=== PATIENT | female | born 1940 | race Caucasian/White ===

== ENCOUNTER 2019-11-04 01:16 | Emergency (ER) | payer MEDICARE, OTHER ==
[~2019-11-04] VITALS: Ht 160 cm; Wt 63.5 kg
--- NOTE | 2019-11-04 01:44 | ED General ---
General Chief Complaint: General Problems/Pain Stated Complaint: LEFT HIP PAIN Nursing Triage Note: Patient states that she has RA that she takes Methotrexate for. Patient states that she was taking 5 pills a day. Her physician wanted to ween her dose down. Patient was down to 2 pills a day but she did take 3 yesterday due to her pain increasing. Patient states that pain started yesterday at 17:00. Patient had taken Alieve with little relief. Patient presents to the ER due to pain, rating it 10 on the 1-10 pain scale. Nursing Sepsis Screen: No Definite Risk Source of Information: Patient, Spouse Exam Limitations: No Limitations History of Present Illness Date Seen by Provider: Nov 04, 2019 Time Seen by Provider: 01:21 Initial Comments 79-year-old female with a history of rheumatoid arthritis is been on a slow taper of her methotrexate since May. She noted a sudden increase in her typical rheumatoid are riotous pain yesterday. No known injury. She is quite concerned since she [place] dinner later today with extended family. She reports that she's had improvement with injection of steroids for similar symptoms in the past without any adverse effects reported. She requests the same today. She reports her labs are up-to-date and that she does not wish any diagnostic studies to be performed. She's not had any fever or chills. There's been no infection symptoms reported. Timing/Duration: 12 Hours Severity: Moderate Modifying Factors: improves with Movement Associated Systoms: No Chest Pain, No Cough, No Fever/Chills, No Nausea/Vomiting Allergies and Home Medications Allergies Coded Allergies: No Known Drug Allergies (Unverified , 11/04/19) Patient Home Medication List Home Medication List Reviewed: Yes Review of Systems Review of Systems Constitutional: malaise EENTM: no symptoms reported Respiratory: no symptoms reported Cardiovascular: no symptoms reported Gastrointestinal: no symptoms reported Genitourinary: no symptoms reported Musculoskeletal: see HPI Skin: no symptoms reported Psychiatric/Neurological: No Symptoms Reported Hematologic/Lymphatic: See HPI Past Xjcqbqv-Cgylnb-Jmilxi Hx Patient Social History Alcohol Use: Denies Use Recreational Drug Use: No Smoking Status: Never a Smoker Recent Foreign Travel: No Contact w/Someone Who Travel: No Recent Infectious Disease Expo: No Physical Abuse: No Sexual Abuse: No Mistreated: No Fear: No Seasonal Allergies Seasonal Allergies: No Past Medical History Surgeries: No Respiratory: No Cardiac: No Neurological: No Genitourinary: No Gastrointestinal: No Musculoskeletal: Yes Rheumatoid Arthritis Endocrine: No HEENT: No Cancer: No Psychosocial: No Integumentary: No Physical Exam Vital Signs Vital Signs - First Documented 11/04/19 01:25 Temp 36.4 Pulse 86 Resp 18 B/P (MAP) 144/62 (89) Pulse Ox 93 O2 Delivery Room Air Capillary Refill : Less Than 3 Seconds Height, Weight, BMI Height: '" Weight: lbs. oz. kg; 24.00 BMI Method: General Appearance: No Apparent Distress, WD/WN Eyes: Bilateral Eye Normal Inspection, Bilateral Eye PERRL, Bilateral Eye EOMI HEENT: PERRL/EOMI, TMs Normal, Normal ENT Inspection, Pharynx Normal Neck: Full Range of Motion, Normal Inspection, Non Tender, Supple Respiratory: Chest Non Tender, Lungs Clear Cardiovascular: Regular Rate, Rhythm, No Edema, No Gallop, No Murmur, Normal Peripheral Pulses Gastrointestinal: Normal Bowel Sounds, No Organomegaly, Non Tender, Soft Back: Normal Inspection, No CVA Tenderness, No Vertebral Tenderness Extremity: Normal Capillary Refill, Inflammation, Other (ulnar deviation of hands and other stigmata of rheumatoid arthritis noted. No acute erythema or inflammation.) Neurologic/Psychiatric: Alert, Oriented x3, No Motor/Sensory Deficits, Normal Mood/Affect, crusher machine operator II-XII Norm as Tested Reflexes: 2+ Bicep (R), 2+ Bicep (L) Skin: Normal Color, Warm/Dry Lymphatic: No Adenopathy Progress/Results/Core Measures Suspected Sepsis Recent Fever Within 48 Hours: No Infection Criteria Present: None New/Unexplained Altered Menta: No Sepsis Screen: No Definite Risk SIRS Temperature: Pulse: 86 Respiratory Rate: 18 Blood Pressure 144 /62 Mean: 89 Results/Orders My Orders Orders - TYLER DEL RIO MD Methylprednisolone Acetate Inj (Depo-Med (11/04/19 01:45) Hydrocodone/Apap 5/325 Tablet (Lortab 5 (11/04/19 01:45) Medications Given in ED Current Medications Medications Dose Ordered Sig/Eliot Route Start Time Stop Time Status Last Admin Dose Admin Acetaminophen/ Hydrocodone Bitart 1 tab ONCE ONCE PO 11/04/19 01:45 11/04/19 01:46 DC 11/04/19 01:41 1 TAB Methylprednisolone Acetate 80 mg ONCE ONCE IM 11/04/19 01:45 11/04/19 01:46 DC 11/04/19 01:42 80 MG Vital Signs/I&O 11/04/19 01:25 Temp 36.4 Pulse 86 Resp 18 B/P (MAP) 144/62 (89) Pulse Ox 93 O2 Delivery Room Air Capillary Refill : Less Than 3 Seconds Blood Pressure Mean: 89 Progress Note : Time: 01:41 Progress Note Patient states that she is up-to-date for her lab tests. She also states that she's had improvement from steroid shots and this is occurred in the past. We'll administer long-acting steroid and dose of Gill. 0217 Feeling much better and would like to go home. Will RX short term Gill. She understands and accepts risks of steroids. Departure Impression Primary Impression: Rheumatoid arthritis flare Disposition: 01 HOME, SELF-CARE Condition: Improved Departure-Patient Inst. Decision time for Depature: 02:18 Referrals: TYLER QUEZADA MD (PCP/Family) Primary Care Physician Patient Instructions: Rheumatoid Arthritis (DC) Scripts Hydrocodone/Acetaminophen (Gill 5-325 Tablet) 1 Each Tablet 1 TAB PO Q4-6HR for Pain MDD 10 TABS for 3 Days, #6 TAB Prov: TYLER DEL RIO MD 11/04/19 TYLER DEL RIO MD Nov 04, 2019 01:43
[2019-11-04] MEDS ORDERED: methylPREDNISolone 80 MG/ML (DEPO MEDROL) VIAL IM ONE (01:45)
[2019-11-04] MEDS ORDERED: HYDROcodone/APAP 5 MG/325 MG (LORTAB) TAB PO ONE (01:45)
[2019-11-04] MEDS ORDERED: HYDR-4226 PO (02:19)
[2019-11-04 02:22] VITALS: BP 144/62
== END 2019-11-04 02:22 | disposition home or self-care (01) ==
LOC: EDUNIT# 01:16 → ER FS 01:20
DX: M06.052 Rheumatoid arthritis without rheumatoid factor, left hip (principal)
CPT/HCPCS: 96372; 99284

== ENCOUNTER 2023-02-13 21:39 | Emergency (ER) | payer MEDICARE, OTHER ==
[~2023-02-13] VITALS: Ht 160 cm; Wt 63.8 kg
[~2023-02-13 21:39] MED LIST: HYDR-4226 PO
--- NOTE | 2023-02-13 21:44 | ED Cough/URI ---
General Stated Complaint: SRE THROAT/CUGH History of Present Illness Date Seen by Provider: Feb 13, 2023 Time Seen by Provider: 21:44 Initial Comments 82-year-old female presents with sore throat, cough, diarrhea, fever. She reports that started with sore throat yesterday and has "moved into her chest today" patient reports she has been taking some Mucinex. She just has some generalized body aches and does not feel well. Allergies and Home Medications Allergies Coded Allergies: No Known Drug Allergies (Unverified , 11/04/19) Patient Home Medication List Home Medication List Reviewed: Yes Benzonatate (Tessalon Perles) 100 Mg Capsule, 100 MG PO TID Prescribed by: GEORGETTE BERUMEN on 02/13/232222 Discontinued Medications Hydrocodone/Acetaminophen (Hydrocodone/Acetaminophen 5 MG/325 MG TAB) 1 Each Tablet, 1 TAB PO Q4-6HR Discontinued Reason: Referral/FU Appt-Addtl Prescribed by: TYLER DEL RIO on 11/04/19218 Last Action: Discontinued Review of Systems Review of Systems Constitutional: chills, fever, malaise Respiratory: cough; No short of breath Cardiovascular: No chest pain, No palpitations Gastrointestinal: No abdominal pain; diarrhea; No vomiting Genitourinary: no symptoms reported Musculoskeletal: no symptoms reported Skin: no symptoms reported Psychiatric/Neurological: No Symptoms Reported Hematologic/Lymphatic: No Symptoms Reported Past Tbfoheq-Hbaktv-Nfrhms Hx Seasonal Allergies Seasonal Allergies: No Past Medical History Surgeries: No Respiratory: No Cardiac: No Neurological: No Genitourinary: No Gastrointestinal: No Musculoskeletal: Yes Rheumatoid Arthritis Endocrine: No HEENT: No Cancer: No Psychosocial: No Integumentary: No Physical Exam Vital Signs - First Documented Capillary Refill : Height: '" Weight: lbs. oz. kg; 24.00 BMI Method: General Appearance: WD/WN, no apparent distress Respiratory: lungs clear, normal breath sounds, no respiratory distress, no accessory muscle use; No respiratory distress; other Cardiovascular: normal peripheral pulses, tachycardia Gastrointestinal: non tender, soft Neurologic/Psychiatric: alert, normal mood/affect, oriented x 3 Skin: normal color, warm/dry Progress/Results/Core Measures Suspected Sepsis SIRS Temperature: Pulse: Respiratory Rate: Blood Pressure / Mean: Results/Orders Lab Results Laboratory Tests Test 02/13/23 21:50 Range/Units Influenza Type A (RT-PCR) Not Detected Not Detecte Influenza Type B (RT-PCR) Not Detected Not Detecte SARS-CoV-2 RNA (RT-PCR) Not Detected Not Detecte Group A Streptococcus Screen NEGATIVE NEGATIVE My Orders Orders - GEORGETTE BERUMEN DO Rapid Strep A Screen (02/13/23 21:46) Influenza A And B By Pcr (02/13/23 21:46) Covid 19 Inhouse Test (02/13/23 21:46) Chest Pa/Lat (2 View) (02/13/23 21:46) Ibuprofen Tablet (Motrin Tablet) (02/13/23 22:00) Medications Given in ED Current Medications Medications Dose Ordered Sig/Eliot Route Start Time Stop Time Status Last Admin Dose Admin Ibuprofen 400 mg ONCE ONCE PO 02/13/23 22:00 02/13/23 22:01 DC 02/13/23 21:59 400 MG Vital Signs/I&O 02/13/23 02/13/23 21:47 21:47 Temp 35.7 Pulse 87 Resp 20 B/P (MAP) 160/83 (108) Pulse Ox 95 O2 Delivery Room Air Room Air Capillary Refill : Progress Note : Progress Note Patient's diagnostic studies were ordered and reviewed interpreted by me. With negative strep, COVID and influenza. Patient's chest x-ray was ordered with initial interpretation and negative by me with final interpretation per radiology report. Discussed with patient that her symptoms are likely viral as it has been prevalent in the community. I did recommend with supportive care including Mucinex lots of fluids you may use [id number] cough medicine or honey. Patient stable and discharged home Diagnostic Imaging Diagonstic Imaging: Xray Plain Films/CT/US/NM/MRI: chest Comments Date of Exam:02/13/23 CHEST PA/LAT (2 VIEW) CHEST PA/LAT (2 VIEW) Indication: Cough and fever Comparison: None available Findings: No pulmonary mass or consolidation. No pleural effusion or pneumothorax. Normal heart size and mediastinal contours. Partial capsular calcifications of bilateral breast implants. Impression: No acute cardiopulmonary process. Reviewed: Reviewed by Me, Reviewed/Discussed Departure Impression Primary Impression: Viral upper respiratory tract infection with cough Disposition: HOME, SELF-CARE Condition: Stable Departure-Patient Inst. Referrals: TYLER QUEZADA MD (PCP/Family) Primary Care Physician Patient Instructions: Viral Upper Respiratory Infection, Adult (DC), Preventing Antibiotic Resistance, Cough, Runny Nose, and the Common Cold Add. Discharge Instructions: You may use honey or other pbmq-zsn-wtimiwk medications for your cough. Recommend he try elderberry as directed on package. Continue your Mucinex, drink plenty of fluids. Tylenol or ibuprofen as needed for fever and body ach es. Scripts Benzonatate (TESSALON PERLSTEPHANIA) 100 Mg Capsule 100 MG PO TID for Cough, #14 CAP Prov: GEORGETTE BERUMEN DO 02/13/23 GEORGETTE BERUMEN DO Feb 13, 2023 21:44
[2023-02-13] MEDS ORDERED: IBUPROFEN TABLET 200 MG TAB PO ONE (22:00)
--- NOTE | 2023-02-13 22:13 | Diagnostic Imaging Report ---
CHEST PA/LAT (2 VIEW) Indication: Cough and fever Comparison: None available Findings: No pulmonary mass or consolidation. No pleural effusion or pneumothorax. Normal heart size and mediastinal contours. Partial capsular calcifications of bilateral breast implants. Impression: No acute cardiopulmonary process. Dictated by: Dictated on workstation # [id number]
[2023-02-13] MEDS ORDERED: BENZ100C18 PO (22:23)
[2023-02-13 22:30] VITALS: BP 158/81
== END 2023-02-13 22:30 | disposition home or self-care (01) ==
LOC: EDUNIT# 21:39 → ER FS 21:41
DX: J06.9 Acute upper respiratory infection, unspecified (principal); Z20.822 Contact with and (suspected) exposure to COVID-19
CPT/HCPCS: 71046; 87430; 87636